=== PATIENT | male | born 1995 | race Caucasian/White ===

== ENCOUNTER 2023-03-25 12:18 | Emergency (ER) | payer SELFPAY ==
--- NOTE | ~2023-03-25 | XR_ITS ---
EXAMINATION: XR FOOT, RIGHT CLINICAL INFORMATION: Pain. Trauma. COMPARISON: None available. TECHNIQUE: AP, lateral, and oblique views of the right foot. FINDINGS: Bone alignment is normal. No acute fracture or dislocation is seen. There is a well-corticated soft tissue ossification adjacent to the medial PIP joint of the second toe. This may be related to old trauma. Joint spaces and soft tissues are otherwise normal. XR/XR foot RT min 3V IMPRESSION: No acute fracture or dislocation.
--- NOTE | ~2023-03-25 | XR_ITS ---
EXAMINATION: XR ANKLE, RIGHT CLINICAL INFORMATION: Right ankle pain status post injury. COMPARISON: None available. TECHNIQUE: AP, lateral, and mortise views of the right ankle. An indicator arrow points to the lateral aspect of the right ankle. FINDINGS: No fracture. Alignment is anatomic. No erosions. Joint spaces are maintained. Soft tissues are normal. XR/XR ankle RT min 3V IMPRESSION: Unremarkable right ankle.
[2023-03-25 12:21] VITALS: BP 128/73; PULSE 55; RESP 20; TEMP 36.6; O2SAT 98; BMI 30.7
--- NOTE | 2023-03-25 12:21 | ED.GENADULT ---
HPI - General Adult General Chief complaint: Extremity Injury, Lower Stated complaint: ? sprained ankle Time Seen by Provider: 03/25/23 12:33 Source: patient, RN notes reviewed and old records reviewed Mode of arrival: ambulatory Limitations: no limitations History of Present Illness HPI narrative: 27 year old male w/ no significant pmhx presents to the ED today for complaints of right ankle/foot pain s/p twisting right ankle 16 days ago. He states it has improved significantly but he still is experiencing some discomfort/pain and feels it is still slightly swollen. He states he was using an blanco wrap for <1 week as well as icing the area. He denies fever, chills, nausea, vomiting, erythema, or warmth. Onset (ago): day(s) (16) Location: lower extremity (R ankle/foot) Severity: mild Pain Consistency: intermittent Treatments prior to arrival: NSAID and cold therapy Related Data Allergies Allergy/AdvReac Type Severity Reaction Status Date / Time No Known Allergies Allergy Verified 03/25/23 13:55 Review of Systems Review of Systems: Constitutional: No Fever, No Chills Cardiovascular: No Chest Pain, No SOB Respiratory: No Cough, No Sputum Gastrointestinal: No Nausea, No Vomiting, No Diarrhea, No Constipation, No Abdominal pain Genitourinary: No Dysuria, No Urinary Frequency, No Hematuria, No Urgency, Musculoskeletal: (+) pain on the lateral anterior aspect of the foot, slight edema, no erythema, or warmth Skin: No Skin Lesions, No rash Neuro: No Weakness, No Numbness, No Paresthesias Yes all other systems are reviewed and are negative Constitutional: Constitutional: Reports as per [facility] Past Medical History Attestation statement: The following information was validated with the patient. Source: old records reviewed Social History Social History Advance Directives: No Advance Directives Information Provided: Yes Physical Exam ED Vital Signs: Vital Signs - 24 hr 03/25/23 12:21 03/25/23 15:30 Temperature 98 F 98 F Pulse Rate 55 61 Respiratory Rate 20 20 Blood Pressure 128/73 130/74 Pulse Oximetry 98 98 Oxygen Delivery Method Room Air Room Air BMI result Body Mass Index 30.7 Const General: cooperative, healthy appearing and no acute distress Orientation/consciousness: patient oriented x3 Limitations: no limitations HENMT Head: Yes normal to inspection and Yes atraumatic Ears: hearing grossly normal bilaterally General nose exam: Normal external nose present Face and sinus: Yes normal facial exam Eyes General: appearance normal, both eyes and all related structures EOM: EOMs intact bilaterally Neck Neck: Yes normal visual inspection and Yes no meningeal signs Resp Effort & Inspection: normal respiratory effort Cardio Rate: regular rate Skin Rashes: no rashes Wounds: no wounds Neuro General: patient oriented x3, tone normal and no meningeal signs Cranial nerves: Yes CN's II-XII intact bilaterally Gait exam (Neuro): Normal gait present Extrem Right upper extremity: normal to inspection Left upper extremity: normal to inspection Right lower extremity: full ROM and foot Details: normal capillary refill, abnormal to inspection Details: joint swelling, tenderness (to palpation to the proximal lateral aspect of foot & lateral malleolus ), toes with normal ROM, vascular exam Details: dorsalis pedis pulse present, posterior tibial pulse present and normal capillary refill and tendon exam Details: active flexion normal and active extension normal; no unusual warmth and no ecchymosis Left lower extremity: normal to inspection Course Course Course Narrative: RME performed by Marzena Abbasi PA-C. Patient is a 27 year old assigned male at presenting to the emergency department with right ankle pain. Imaging ordered. Patient placed back in the waiting room pending room availability and results. XR foot RT min 3V IMPRESSION: No acute fracture or dislocation. XR ankle RT min 3V IMPRESSION: Unremarkable right ankle. > Blanco wrap applied for compression/stability Results discussed with patient including worrisome signs and symptoms and strict return precautions, and when to return to the emergency department. They verbalized understanding and feel safe for discharge at this time. Medical Decision Making Medical Decision Making MDM Narrative: 27 year old male w/ no significant pmhx presents to the ED today for complaints of right ankle/foot pain s/p twisting of the right ankle 16 days ago. On exam VSS, NAD, neuro-vascularly intact, PE as above. Concern for ankle /foot sprain vs fracture. Unlikely DVT, Achilles tendon rupture, septic joint/arthritis or compartment syndrome Plan: Ankle & foot x-ray, RICE, NSAIDs, follow up w/ PCP Please refer to course for remaining clinical decision making, interpretation of labs/imaging results, and discussions with consultants and/or family members. Differential Diagnosis Differential Diagnoses: The differential diagnosis associated with the presentation includes As above Admission/Observation Consideration of admission/observation: Escalation of care including admission/observation considered Lab Data MDM Lab Attestation statement: I reviewed the patient's lab results. Independent Interpretation I performed an independent interpretation of an: Plain X-Ray Radiology Impression Discussion of test interpretation with radiology: I have reviewed the radiologist's reading. External Record Review External record reviewed: Inpatient record, Office record, Outpatient record, Prior outpatient labs, Prior outpatient radiology, Primary care record and Outside ED record Tests considered The following testing was considered but not selected: As above Prescription Management I considered prescription management with: Pain Medication Discharge Plan Discharge Clinical Impression: Ankle sprain and strain, Foot sprain Patient Disposition: Home, Self-Care Instructions: Ankle Sprain (DC), Foot Sprain (ED) Additional Instructions: Your x-rays do not show fracture you likely sprained her foot and ankle Use Blanco wrap for compression Ice and elevate Take Tylenol and Motrin Please follow-up with orthopedics If symptoms persist or worsen return to the ED [place] [facility] [place] [facility] [place] Group] Stand Alone Forms: Work/School Release Interventions: ED Discharge Assessment Last Done: 03/25/23 16:42 Discharge Date/Time: 03/25/23 16:43
[2023-03-25 15:30] VITALS: BP 130/74; PULSE 61; RESP 20; TEMP 36.6; O2SAT 98
== END 2023-03-25 16:43 | disposition home or self-care (01) ==
PROVIDERS: Emergency Provider Emergency Medicine Emergency Medical Services
DX: S93.401A Sprain of unspecified ligament of right ankle, initial encounter (principal); S96.911A Strain of unspecified muscle and tendon at ankle and foot level, right foot, initial encounter; X50.1XXA Overexertion from prolonged static or awkward postures, initial encounter; Y93.9 Activity, unspecified; Y92.9 Unspecified place or not applicable; Y99.9 Unspecified external cause status
CPT/HCPCS: 73610; 73630; 99283; 99284

== ENCOUNTER 2025-07-06 15:38 | Emergency (ER) | payer SELFPAY ==
--- NOTE | ~2025-07-06 | CT_ITS ---
EXAMINATION: CT LUMBAR SPINE WITHOUT CONTRAST CLINICAL INFORMATION: Injury. Low back pain. COMPARISON: None available. TECHNIQUE: Contiguous axial images through the lumbar spine using 2 mm collimation with bone and soft tissue algorithm. Sagittal and coronal reformatted with soft tissue algorithm. This CT examination was performed using dose optimization techniques as appropriate, variously including the following: *Automated exposure control *Adjustment of mA and/or kV according to patient size (this includes techniques or standardized protocols for targeted exams where dose is matched to indication/reason for exam; i.e. extremities or head) *Use of iterative reconstruction technique DLP: 852 mGy-cm FINDINGS: No acute cortical disruption within the vertebral bodies or the posterior elements of the lumbar spine. Endplate sclerosis and small marginal osteophyte formation with decreased intervertebral disc height and facet joint opercular. L5-S1. Grade 1 retrolisthesis L5-S1. No spondylolysis pars interarticulares. No gross prevertebral compartment hematoma or masses. Sutures in the medial aspect of the cecum likely status post appendectomy. No gross hydronephrosis or nephrolithiasis in the right kidney. Normal diameter of the abdominal aorta. CT/CT lumbar spine wo IV con IMPRESSION: No acute fracture or trauma-related listhesis. 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 Electronically signed by: Rustam Meier MD 07/08/2025 08:14 AM ROBBIE
[2025-07-06 15:46] VITALS: BP 149/85; PULSE 72; RESP 16; TEMP 36.8; O2SAT 97; BMI 33.5
--- NOTE | 2025-07-06 15:57 | ED_ITS ---
HPI - General Adult General Chief complaint: Back Pain/Injury Stated complaint: Low back pain, fall, -loc/head strike Time Seen by Provider: 07/06/25 15:56 Source: patient and EMS Mode of arrival: EMS Limitations: no limitations History of Present Illness ED Provider: Marzena Abbasi PA-C HPI narrative: Patient is a 30 year old assigned male at with no reported medical history presenting to the emergency department today with low back pain. Patient states that he got up from his desk and felt a lower back pain / pulling that caused him to go to the floor from the pain. Patient states he has not had any bowel or bladder incontinence. Patient denies any saddle paresthesia. Patient denies any other complaints at this time. Related Data Previous Rx's ?Medication ?Instructions ?Recorded cyclobenzaprine 5 mg tablet 5 mg PO TID PRN muscle spa sm 7 07/06/25 days #21 tabs prednisone 20 mg tablet 20 mg PO DAILY 7 days #7 tab s 07/06/25 Allergies Allergy/AdvReac Type Severity Reaction Status Date / Time No Known Allergies Allergy Verified 07/06/25 15:48 Review of Systems Constitutional: Constitutional: Reports as per HPI Eyes: Eyes: Reports as per HPI ENT: Reports as per HPI Cardiovascular: Cardiovascular: Reports as per HPI Respiratory: Respiratory: Reports as per HPI Gastrointestinal: Gastrointestinal: Reports as per HPI Genitourinary: Genitourinary: Reports as per HPI Musculoskeletal: Musculoskeletal: Reports as per HPI Integumentary/Breasts: Skin/Breast: Reports as per HPI Neurologic: Reports as per HPI Psychiatric: Psychiatric: Reports as per HPI Endocrine: Endocrine: Reports as per HPI Hematologic/Lymphatic: Hematologic/Lymphatic: Reports as per HPI Allergic/Immunologic: Allergic/Immunologic: Reports as per HPI PMF Past Medical History Attestation statement: The following information was validated with the patient. Source: old records reviewed and nursing notes reviewed Social History Social History Smoked in Last 30 Days: No Use of substances other than those prescribed or required for medical reasons: Yes Substance Use Type: Marijuana Advance Directives: No Advance Directives Information Provided: No Physical Exam ED Vital Signs: Vital Signs - 24 hr 07/06/25 15:46 07/06/25 18:09 Temperature 98.3 F 97.3 F Pulse Rate 72 60 Respiratory Rate 16 16 Blood Pressure 149/85 H 109/59 L Pulse Oximetry 97 98 Oxygen Delivery Method Room Air Room Air BMI result Body Mass Index 33.5 Const General: cooperative, no acute distress, alert and awake Nutritional Appearance: well nourished Orientation/consciousness: patient oriented x3 HENMT Head: Yes normal to inspection and Yes atraumatic Ears: hearing grossly normal bilaterally and external ears normal General nose exam: Normal external nose present, no nasal discharge noted and no epistaxis Face and sinus: Yes normal facial exam, No abrasion and No laceration Mouth: Normal oral and palatal mucosa present, no drooling and no muffled voice Eyes General: appearance normal, both eyes and all related structures Periorbital: periorbital findings normal Eyelids: Yes eyelids normal Conjunctivae: conjunctivae normal Pupils: Equal, round and reactive pupils present EOM: EOMs intact bilaterally Neck Neck: Yes normal visual inspection and Yes full ROM Resp Effort & Inspection: normal respiratory effort and able to speak in complete sentences Neuro General: patient oriented x3, moves all extremities and CN's II-XI intact bilaterally Cranial nerves: Yes Equal, round and reactive pupils present Cognition (Neuro): normal cognition Extrem General: Yes normal to inspection, Yes full ROM and Yes capillary refill normal Psych Appearance: grossly normal Mental Status: mental status grossly normal Affect: normal affect Attitude: cooperative Thought process: Normal thought process present Thought content: Normal thought content present Insight: Good insight present (Psych) Course Course Course Narrative: 2032-- Ruth Enrique NP Upon reassessment, he is reporting significant improvement. We will proceed with discharge plan. Patient and girlfriend at bedside are agreeable. Dc plans prepped my previous provider. Medications Administered Discontinued Medications Generic Name Dose Route Start Last Admin Trade Name Freq PRN Reason Stop Dose Admin Diazepam 5 mg 07/06/25 18:45 07/06/25 18:50 Diazepam 10 Mg/2 Ml Cartridge IVPUSH 07/06/25 18:46 5 mg STAT STA Administration Ketorolac Tromethamine 15 mg 07/06/25 18:24 07/06/25 18:28 Ketorolac Tromethamine 15 Mg/Ml Vial IVPUSH 07/06/25 18:25 15 mg ONCE ONE Administration Methylprednisolone Sodium Succinate 60 mg 07/06/25 18:24 07/06/25 18:28 Methylprednisolone Sod Succ 125 Mg/2 Ml Vial IVPUSH 07/06/25 18:25 60 mg ONCE ONE Administration Medical Decision Making Medical Decision Making [facility] Narrative: Patient is a 30 year old assigned male at with no reported medical history presenting to the emergency department today with low back pain. Patient's physical exam was as noted in the physical exam portion of this note. Patient's CT lumbar spine showed degenerative disc disease at L5-S1 but no other acute process. Patient received 200mcg of fentanyl from EMS in the field which, upon re- evaluation, he stated it helped his symptoms some. Patient was given IV Solu-medrol and PO Flexeril while in the department however, he was still unable to ambulate. Patient has been ordered 5mg of IV valium. I explained my physical exam findings as well as all test results to the patient. I answered all questions asked by the patient. Patient signed out to DIRECTOR BUILDING Ruth Enrique pending ambulation trial. Differential Diagnosis Differential Diagnoses: The differential diagnosis associated with the pre sentation includes Low back pain Muscle spasm Lumbar radiculopathy Admission/Observation Consideration of admission/observation: Escalation of care including admission/observation considered Patient's disposition will be determined after ambulation trial. Independent Interpretation I performed an independent interpretation of an: CT Scan Interpretation: My interpretation is in agreement with the radiologist's impression of this imaging study as written below. Exam: Unenhanced CT lumbar spine with multiplanar reformats. Comparions: None Findings: Osseous structures: Lumbar vertebral body heights and alignment are maintained. No fractures or traumatic malalignment. No destructive osseous lesions. There is slight disc space narrowing and spurring at L5-S1 level. Remaining intervertebral disc heights appear maintained. Soft tissues: No gross abnormal epidural or paraspinal soft tissue. No definable compromise of the thecal sac or spinal canal. Visualized visceral structures reveal no acute abnormalities. Impression: 1. Evidence of degenerative disc disease at L5-S1 level. 2. No other significant abnormalities. Electronically signed on Jul 06, 2025, 5:30:21 PM EST by: Rex Gold MD Diplomate, [place] [employer] Report completed: Jul 06, 2025, 5:30:21 PM EST Radiology Impression Discussion of test interpretation with radiology: I have reviewed the radiologist's reading. Independent Historian Clinical information obtained from an independent historian. History obtained from or confirmed by: EMS (EMS provided additional history and confirmed the history provided by the patient. ) Prescription Management I considered prescription management with: Pain Medication (patient prescribed pain medication) Critical Care Time Critical Care Time Critical Care Time: Yes Total Critical Care Time: 42 Attestation: I spent 42 minutes of Critical Care Time with this patient. This does not inclu de time spent on separately reported billable procedures. Discharge Plan Discharge Clinical Impression: Low back pain Qualifiers: Chronicity: acute Back pain laterality: unspecified Sciatica presence: without sciatica Qualified Code(s): M54.50 - Low back pain, unspecified Instructions: Acute Low Back Pain (ED) Additional Instructions: Your imaging today showed some evidence of some mild arthritis / disc break down at L5-S1 - you should follow up with a spinal specialist for this. IF you are prescribed home medications and/or you are taking over the counter medications at home - it is very important you continue to do so as prescribed / directed unless told otherwise by a healthcare provider. Follow up with your primary care provider. Do your best to stay well hydrated and rest. Return to the emergency department immediately if your symptoms worsen or if you develop any numbness, tingling, dizziness, shortness of breath, difficulty breathing, chest pain, blurry vision, loss of vision, nausea, vomiting, abdominal pain, fever, chills, back pain, or any other complaints. If you do not have a primary care provider - call any of the below numbers to establish and follow up with a primary care provider. [facility] [place] Primary [place] ([place]) [phone] [place] [address], [address] [facility] [place] Primary Care ([address] [place]) [phone] [place] [address], [address] [facility], [address] [facility] [place] [facility] ([address] [place]) [phone] [place] [address], [address] [facility], [address] [facility] [place] Primary Care ([place]) [phone] [place] [address], [address] [facility], [address] [facility] [place] Family Medicine [phone] [address] [facility], [address] Please see the information below about our Patient Portal. If you are not yet enrolled in the [facility] Patient Portal, you will receive an enrollment email invitation following your visit to any [facility] [place] [place] setting. You may also self-enroll in the Patient Portal by visiting our website: [email or web address] The following information is required to access the Patient Portal: - Your [facility] [place] [place] Medical Record Number - Your personal home email address (must match what is in your electronic medical record, Registration staff can assist with this) - Name - Date of Capabilities of the Patient Portal: - Message some providers - View upcoming appointments - Access your health summary, medical history, and visit history - View current conditions and allergies - View procedure and lab results - View your medications, including guidelines, side effects, and precautions - Complete pre-appointment questionnaires requested by your provider - Ready summary reports of your office visits and procedures To access the Patient Portal Mobile [employer], follow these directions: - Search [employer] in the [employer] Store or [employer] Store - Download the Johny - Search for [facility] - Enter your login/password Prescriptions: New cyclobenzaprine 5 mg tablet 5 mg PO TID PRN (Reason: muscle spasm) 7 Days Qty: 21 0RF prednisone 20 mg tablet 20 mg PO DAILY 7 Days Qty: 7 0RF Referrals: [facility] [place] [place] [facility] [Provider Group, Neurosurgery] Referral Note: Call to establish and follow up with the spine team for your low back pain. Stand Alone Forms: Work/School Release Print Language: American
--- OUTSIDE RECORDS SUMMARY | 2025-07-06 16:02 | XMS_ITS | Clinical Summary ---
Author Organization [facility] Address [address] [place] [address] Phone Care Team Providers Care Asset Protection Officer Name Role Phone Unavailable Primary Care Provider Unavailabl e Immunizations Immunization Administration Dates Next Due DTP 11/14/1998, 9,09/09/1998, 998 DTaP 5 07/02/2002 HPV, Quadrivalent 06/07/2013,07/06/2012,04/27/20 12 Hep B, ped/adol 09/09/1998,1997 Hib (PRP-T) 09/09/1998,1997 IPV 07/02/2002 Influenza, injectable, trivalent 06/07/2013 Influenza, intranasal, trivalent 04/27/2012 MMR 07/02/2002,09/09/1998 Meningococcal Conj (Menactra) MCV4P 04/27/2012 OPV 10/20/1998,09/09/1998,1997 Tdap 04/27/2012 Varicella 06/07/2013,10/20/1998 Family History Relation Name Status Comments Brother 1 Alive Brother: Asthma , Asthma Brother 2 Alive Brother: Asthma , Asthma Father Alive Father: Alive a nd well Mother Alive Mother: Alive a nd well Other Family history of Asthma, Family history of Migraines, Family history of Diabetes mellitus Social History Tobacco Use Types Packs/Day Years Used Date Smoking Tobacco: Never Comments:Never smoker Sex and Gender Information Value Date Recorded Sex Assigned at Not on file Legal Sex Male 4:46 PM EDT Gender Identity Not on file Sexual Orientation Not on file Last Filed Vital Signs Vital Sign Reading Time Taken Comments Blood Pressure 96/56 12/10/2013 12:00 AM EDT Pulse 51 12/10/2013 12:00 AM EDT Temperature 36.7 C (98.1 F) 12/10/2013 12:00 AM EDT Respiratory Rate - - Oxygen Saturation - - Inhaled Oxygen Concentration - - Weight 85.7 kg (189 lb) 12/10/2013 12:00 AM EDT Height 179.1 cm (5' 10.5 ) 12/10/2013 12:00 AM E DT Body Mass Index 26.74 12/10/2013 12:00 AM EDT Plan of Treatment Health Maintenance Due Date Last Done Comments Hepatitis B Vaccines (3 of 3 - 3-dose series) 11/04/1998 09/09/1998, 1997 DTaP,Tdap,and Td Vaccines (6 - Td or Tdap) 04/27/2022 04/27/2012, 07/02/2002, 11/14/1998, Additional history exists Influenza Vaccines (#1) 2025 06/07/2013, 04/27 COVID-19 Vaccine () 04/08/2025 HIB Vaccines Completed 09/09/1998, 1997 IPV Vaccines Completed 07/02/2002, 10/06, 09/09/1998, Additional history exists MMR Vaccines Completed 07/02/2002, 09/09/1998 Meningococcal Vaccine Aged Out 04/27/2012 No jeff mary eligible based on patient's age to complete this topic HPV Vaccines Completed 06/07/2013, 06/09, 04/27/2012 Varicella Vaccines Completed 06/07/2013, 10/20/1998 Hepatitis A Vaccines Aged Out No long er eligible based on patient's age to complete this topic Men B Vaccine Aged Out No longer elig ible based on patient's age to complete this topic Pneumococcal Vaccine Aged Out No long er eligible based on patient's age to complete this topic
--- OUTSIDE RECORDS SUMMARY | 2025-07-06 16:02 | XMS_ITS | Encounter Summary ---
Author Organization [facility] Address [address] [place] [address] Phone Care Team Providers Care Cpht Name Role Phone Evette Rendon MD Primary Care Provider [phone] Encounter Details Date Type Department Care Team (Late st Contact Info) Description 12/12/2013 Documentation [facility] [place] Family Medicine [address] [place], [place] [id number] Family Medicine, Physician [address] [place] [address] Social History Tobacco Use Types Packs/Day Years Used Date Smoking Tobacco: Never Assessed Sex and Gender Information Value Date Recorded Sex Assigned at Not on file Legal Sex Male 4:46 PM EDT Gender Identity Not on file Sexual Orientation Not on file documented as of this encounter Plan of Treatment Not on file documented as of this encounter Visit Diagnoses Not on filedocumented in this encounter Care Teams Cpht Relationship Specialty Start Date End Date Evette Rendon MD [address] [facility] [place] [address] PCP - General 03/18/17 11/17/22 documented as of this encounter
--- OUTSIDE RECORDS SUMMARY | 2025-07-06 16:02 | XMS_ITS | Encounter Summary ---
Author Organization [facility] Address [address] [place] [address] Phone Care Team Providers Care Band Tumbler Name Role Phone Evette Rendon MD Primary Care Provider [phone] Encounter Details Date Type Department Care Team (Late st Contact Info) Description 03/24/2017 Conversion Encounter [facility] [address] [place] [address] Social History Tobacco Use Types Packs/Day Years [...] on filedocumented in this encounter Care Teams Band Tumbler Relationship Specialty Start Date End Date Evette Rendon MD [address] [place] [address] PCP - General 03/18/17 11/17/22 documented as of this encounter
--- OUTSIDE RECORDS SUMMARY | 2025-07-06 16:02 | XMS_ITS | Data Portability ---
Author Organization [place] - [facility], [id number] Address [address] [place] [address] Assessment No assessment recorded. Plan of Treatment Reminders Order Date Submit Date Provider Last Modified By Organization Details Last Modified Time Details Appointments None recorded. Lab None recorded. Referral hand surgeon referral - L 5th proximal phalanx fracture 2023 024 [email or web address] [address] [facility], [address], [address], [place], [address], 4 14:34:54 Procedures None recorded. Surgeries None recorded. Imaging XR, finger(s), 2 or more view 2023 024 [facility], [address] [place], [address], 4 15:12:16 Medication Orders None recorded. Patient TargetsNo targets recorded. Patient InstructionsNo instructions recorded. Reason for Referral Hand Surgeon Referral for In jury of finger L 5th proximal phalanx fracture Referring Physician: Aicha Orlando, Urgent Care, Encounter Date: 01/20/2024 Results Created Date Observation Date Name Description Value Unit Range Abnormal Flag Note LastModifiedBy Organization Detail LastModifiedTime 01/20/2001/20/2024 XR, finge r(s), 2 or more view No observ ation record ed. [email or web address] [facility] [address] [place], [address], 01/20/2024 15:23:53 Result Notes None recorded. Problems No Known Problems Medical Equipment None Reported. Allergies No known drug allergies Medications Not known to be on any medication Vitals Date Recorded Body height Body mass index (BMI) Body weight Body temperature Respiratory rate Oxygen saturation Heart rate Systolic And Diastolic Provider Name and Address Organization Details Last Updated DateTime 4 180.34 cm 32.1 kg/m2 760764. 25 g 97.7 [degF] 16 /min 97 % 50 /min 149/85 mm[Hg] Bruna Curran [facility] - [facility] 14:15:41 Social History Question Answer Notes LastModified by [employer] Details LastModified Time Tobacco Smoking Status Never Smoker Bruna evans PA - [facility] 01/20/2024 14:14:41 Which Illicit Or Recreational Drugs Have You Used? Jihanvy Information not available 01/20/2024 What Was The Date Of Your Most Recent Tobacco Screening? 01/20/2024 Information not available 01/20/2024 Sex: Unknown Functional Status Question Answer Note LastModified by [employer] Details LastModified Time Do you use any illicit or recreational drugs? Yes Information not available 01/20/2024 What is your level of alcohol consumption? None Information not available 01/20/2024 Are you currently employed? Yes Information not available 01/20/2024 Mental Status None recorded. Family History Relationship Description Onset Age of this Age Resolved Age Notes LastModified by Organization Details LastModified Time Father No current problems or disability Not available 01/19 14:14:15 Mother No current problems or disability Not available 01/19 14:14:15 Medical History No medical history recorded. Past Encounters Encounter ID Performer Location Encounter Start Date Encounter Closed Date Diagnosis/Indication Diagnosis SNOMED-CT Code Diagnosis ICD10 Code Diagnosis IMO Codes Diagnosis Note [id number] JARROD JAIMES [address] [facility] [address] [place] [address] 01/20/2024 14:08:27 01/20/2024 14:34:54 Injury of finger 79345897 S69.92XA You have a fracture of the finger. You will need to see orthopedis t to have this correctly evaluated. You were given a copy of your x-ray Wear the splint until you are seen by orthopedis t. If you find that the splint is too tight then you need to loosen it immediatel y. The following will help with your discomfort :1. Elevate the injury above your heart2. Apply ice to the injury.3. It is ok to take Motrin or Tylenol for the discomfort - however do not take either if you are allergic. People taking blood thinners should not take Ibuprofen. 4. Immediatel y go to the ER if you develop numbness or skin discolorat ion. Black around the nail bed. Thank you for using [facility] if you have any questions or concerned please don't hesitate to contact our office. Health Concerns Section Related Observation LastModified by Organization Detai ls LastModified Time None Recorded Concern Status LastModified by Organization Details LastModified Time None Recorded Advance Directives Directive None Recorded Payers Insurance Date Sequence Insurance Name Policy Number Policy Beltre Covered Member ID Beltre Member ID Guarantor Name 01/20/2024 PROMPT PAY Margaret Maki Notes Date Note Type Note Provider Name and Address Organization Details Recorded Time 01/20/2024 text/html 28y/o male here about a week after injuring his L pinky finger playing basketball. JARROD Weiner [address] [place], [id number], JARROD - [facility] 01/20/2024 14:31:55
[2025-07-06 18:09] VITALS: BP 109/59; PULSE 60; RESP 16; TEMP 36.3; O2SAT 98
[2025-07-06] MEDS: diazePAM 10 MG/2 ML CARTRIDGE 5 MG IVPUSH (18:50)
--- NOTE | 2025-07-06 20:19 | PC.NURSE ---
pt ambulated with walker steadily, pt reports being able to walk but still is concerned about falling or pain due to ongoing tightness and pain
[2025-07-06 20:46] VITALS: BP 126/73; PULSE 74; RESP 16; TEMP 36.6; O2SAT 97
[2025-07-06 20:47] VITALS: BP 126/73; PULSE 74; RESP 16; TEMP 36.6; O2SAT 97
== END 2025-07-06 20:48 | disposition home or self-care (01) ==
PROVIDERS: Emergency Provider Emergency Medicine
DX: M54.50 Low back pain, unspecified (principal); M51.379 Other intervertebral disc degeneration, lumbosacral region without mention of lumbar back pain or lower extremity pain
CPT/HCPCS: 72131; 96374; 96375; 99284; 99285; J1885; J2919; J3360

== ENCOUNTER → 2025-07-06 16:05 | Outpatient (BNV) | payer SELFPAY | PROVIDERS: Emergency Provider Emergency Medicine; Visit Provider Radiology Diagnostic Radiology | DX: M47.816 Spondylosis without myelopathy or radiculopathy, lumbar region (principal) | CPT/HCPCS: 72131 ==